=== PATIENT | male | born 1965 | race Caucasian/White ===

== ENCOUNTER 2023-06-06 08:39 | Outpatient (RCR) | payer MEDICAID, SELFPAY | END 2023-07-12 17:00 | disposition home or self-care (01) | LOC: HO.WCC 08:39 | PROVIDERS: PCP Family Medicine; Visit Provider Surgery | DX: E10.622 Type 1 diabetes mellitus with other skin ulcer (principal); L97.823 Non-pressure chronic ulcer of other part of left lower leg with necrosis of muscle; E10.42 Type 1 diabetes mellitus with diabetic polyneuropathy; Z79.4 Long term (current) use of insulin; Z87.891 Personal history of nicotine dependence | CPT/HCPCS: 11042; 11043 ==